=== PATIENT | male | born 1945 ===

== ENCOUNTER 2025-01-23 09:39 | Outpatient (AMB) | payer OTHER, SELFPAY | END 2025-01-23 09:45 | disposition home or self-care (01) | LOC: HO.HMGAL 09:39 | PROVIDERS: PCP Internal Medicine; Visit Provider Registered Nurse Emergency | DX: J30.89 Other allergic rhinitis (principal) | CPT/HCPCS: 95117; 95165 ==

== ENCOUNTER 2025-02-20 09:53 | Outpatient (AMB) | payer OTHER, SELFPAY | END 2025-02-20 10:47 | disposition home or self-care (01) | LOC: HO.HMGAL 09:53 | PROVIDERS: PCP Physician Assistant; Visit Provider Registered Nurse Emergency | DX: J30.89 Other allergic rhinitis (principal) | CPT/HCPCS: 95117; 95165 ==

== ENCOUNTER 2025-03-20 09:49 | Outpatient (AMB) | payer OTHER, SELFPAY | END 2025-03-20 09:49 | disposition home or self-care (01) | LOC: HO.HMGAL 09:49 | PROVIDERS: PCP Physician Assistant; Visit Provider Registered Nurse Emergency | DX: J30.89 Other allergic rhinitis (principal) | CPT/HCPCS: 95117; 95165 ==

== ENCOUNTER 2025-04-24 10:03 | Outpatient (AMB) | payer OTHER, SELFPAY | END 2025-04-24 10:04 | disposition home or self-care (01) | LOC: HO.HMGAL 10:03 | PROVIDERS: PCP Physician Assistant; Visit Provider Registered Nurse Emergency | DX: J30.89 Other allergic rhinitis (principal) | CPT/HCPCS: 95117; 95165 ==